=== PATIENT | male | born 1940 | race Caucasian/White ===

== ENCOUNTER 2018-03-02 11:57 | Emergency (ER) | payer MEDICARE, OTHER ==
[~2018-03-02] VITALS: Ht 177.8 cm; Wt 81.6 kg
--- NOTE | 2018-03-02 12:00 | NUR ---
ARRIVAL PATIENT TO ROOM 5, AMBULATORY STATES THAT HE WAS MOVING HIS DAUGHTER'S CAT AND PUSHED IT OFF THE COUCH AND THE CAT CLAWED HIM. PATIENT HAS A SIGNIFICANT HEMATOMA TO THE RIGHT HAND AND A PUNCTURE WOUND TO THE RIGHT TOP HAND. CONNECTED TO ALL MONITORS, ASSESSMENT COMPLETED, AWAITING MD BUNCH.
[2018-03-02 12:15] VITALS: BP 138/72
[2018-03-02] MEDS ORDERED: TETANUS DIPHTHERIA TOXOIDS IM ONE (12:35)
--- NOTE | 2018-03-02 12:40 | ER.PDOC ---
General Chief Complaint: Animal Bite Stated Complaint: RT HAND INJURY Time seen by MD: 12:33 Source: patient Exam Limitations: no limitations History of Present Illness Initial Comments cat accidently scratched rt hand [employer] Occurred: just prior to arrival Recent Injury: Yes Where: home Severity: mild Exacerbated By: nothing Relieved By: nothing Allergies: Coded Allergies: No Known Allergies (Unverified , 03/02/18) Past Medical History Medical History: cardiac problems, hypertension Surgical History: pacemaker/ICD Social History Smoking: non-smoker Alcohol Use: rarely Drug Use: none Review of Systems Respiratory: no symptoms reported Musculoskeletal: see HPI Skin: see HPI All Other Systems: Reviewed and Negative Physical Exam General Appearance: alert, no distress Skin: color nml, warm/dry Vascular: no vascular compromise Neuro/Psych: sensation nml, motor nml Central Exam: oriented X3 EENT: eyes nml inspection Respiratory: no resp distress Comments dorsum rt hand small scratch with hematoma,n/v intact,capp refill nl,no bleeding Departure Time of Disposition: 12:38 Disposition: 01 HOME, SELF-CARE Impression: Primary Impression: Laceration Condition: Improved Referrals: PCP,UNKNOWN (PCP) PRIMARY CARE PROVIDER Duration or Time Spent with Pa: 10 NAZIA SINCLAIR MD Mar 02, 2018 12:40
[2018-03-02] MEDS ORDERED: BOOSTRIX TDAP IM ONE (13:00)
[2018-03-02 13:01] VITALS: BP 138/72
== END 2018-03-02 12:57 | disposition home or self-care (01) ==
LOC: ER 11:57
DX: S61.411A Laceration without foreign body of right hand, initial encounter (principal); I10 Essential (primary) hypertension; Z95.0 Presence of cardiac pacemaker; W55.03XA Scratched by cat, initial encounter; Y93.89 Activity, other specified; Y92.098 Other place in other non-institutional residence as the place of occurrence of the external cause; Y99.8 Other external cause status
CPT/HCPCS: 90471; 90714; 99283